=== PATIENT | female | born 1985 | race Caucasian/White ===

== ENCOUNTER 2019-08-23 09:23 | Emergency (ER) | payer BC ==
[2019-08-23 09:31] VITALS: BP 107/56
--- NOTE | 2019-08-23 09:53 | ED ---
Skin Complaint - HPI Summary HPI Summary: L outer ear pain started 7 days ago, itchy and burning first day, pregressed to pain and went to PCP who prescribed amoxil - has not gotten better, over past 3 days outer ear has gotten red swollen and has "little bumps" patient has been applying bacitracin oint qd. No known precipitant or injury other than she has hair dyed the day before ear symptomatic, and got worse after repeat hair treatment 5 days later - History of Current Complaint Chief Complaint: UCEar Time Seen by Provider: 08/23/19 09:39 Stated Complaint: EAR PAIN Hx Obtained From: Patient Hx Last Menstrual Period: bcp Onset Severity: Mild Current Severity: Moderate Pain Intensity: 6 Skin Location: Ear - L outer Aggravating Symptom(s): Touch Alleviating Symptom(s): Nothing Associated Signs & Symptoms: Negative - Allergy/Home Medications Allergies/Adverse Reactions: Allergies Allergy/AdvReac Type Severity Reaction Status Date / Time No Known Allergies Allergy Verified 08/23/19 09:31 PMH/Surg Hx/FS Hx/Imm Hx Previously Healthy: Yes Endocrine/Hematology History: Denies: Hx Diabetes, Hx Thyroid Disease Cardiovascular History: Denies: Hx Congestive Heart Failure, Hx Hypertension Respiratory History: Denies: Hx Asthma, Hx Chronic Obstructive Pulmonary Disease (COPD) GI History: Denies: Hx Ulcer History: Denies: Hx Renal Disease - Surgical History Surgery Procedure, Year, and Place: Ectopic with Emergency Surgery 2013. Laparoscopy Infectious Disease History: No Infectious Disease History: Denies: Hx Hepatitis, Hx Human Immunodeficiency Virus (HIV), Traveled Outside the [place] in Last 30 Days - Family History Known Family History: Positive: Cardiac Disease - Social History Occupation: Employed Full-time Lives: With Family Alcohol Use: Occasionally Substance Use Type: Reports: None Smoking Status (MU): Never Smoked Tobacco Review of Systems Constitutional: Negative Negative: Fever, Chills Positive: Other - exterior ear pain L. Negative: Ear Ache Cardiovascular: Negative Respiratory: Negative Neurological: Negative Psychological: Normal All Other Systems Reviewed And Are Negative: Yes Physical Exam Triage Information Reviewed: Yes Vital Signs On Initial Exam: Initial Vitals Temp Pulse Resp BP Pulse Ox 98.5 F 88 15 107/56 100 08/23/19 09:29 08/23/19 09:29 08/23/19 09:29 08/23/19 09:29 08/23/19 09:29 Appearance: Positive: Well-Appearing, No Pain Distress, Well-Nourished Skin: Positive: Warm Head/Face: Positive: Normal Head/Face Inspection ENT: Positive: TMs normal, Other - outter upper L ear erythemic, swollen, tender , no trauma noted, no drainage, no fluctuance no mastoid tenderness or swelling. Negative: Nasal congestion Neck: Positive: No Lymphadenopathy Respiratory/Lung Sounds: Positive: Clear to Auscultation Cardiovascular: Positive: Normal, RRR Neurological: Positive: Normal Diagnostics - Vital Signs Vital Signs Temp Pulse Resp BP Pulse Ox 08/23/19 09:29 98.5 F 88 15 107/56 100 - Laboratory Lab Statement: Any lab studies that have been ordered have been reviewed, and results considered in the medical decision making process. Course/Dx - Differential Diagnoses - Skin Complaint Differential Diagnoses: Abscess, Cellulitis, Contact Dermatitis, Poison Kyung, Varicella Zoster - Diagnoses Provider Diagnoses: Dermatitis Discharge ED - Sign-Out/Discharge Documenting (check all that apply): Patient Departure All imaging exams completed and their final reports reviewed: No Studies - Discharge Plan Condition: Good Disposition: HOME Prescriptions: Betamethasone Dipropionate 0.05 % EX TID #15 gm Patient Education Materials: Contact Dermatitis (ED) Referrals: Gay Benitez MD [Primary Care Provider] - 3 Days (if no better) Additional Instructions: apply steroid cream as directed and keep area clean and dry report worsening symptoms or fever - Billing Disposition and Condition Condition: GOOD Disposition: Home
== END 2019-08-23 10:05 | disposition home or self-care (01) ==
LOC: UCEAST 09:23
DX: L30.9 Dermatitis, unspecified (principal)
CPT/HCPCS: 99202; G0463